=== PATIENT | female | born 1955 | race Caucasian/White ===

== ENCOUNTER → 2017-05-31 | Outpatient (CLI) | payer MEDICARE | END | disposition home or self-care (01) | LOC: HKI 13:19 | DX: Z02.9 Encounter for administrative examinations, unspecified (principal) ==

== ENCOUNTER → 2017-06-23 | Outpatient (CLI) | payer MEDICARE | END | disposition home or self-care (01) | LOC: HKI 10:18 | DX: Z47.1 Aftercare following joint replacement surgery (principal); Z96.641 Presence of right artificial hip joint ==

== ENCOUNTER → 2017-09-22 | Outpatient (CLI) | payer MEDICARE | END | disposition home or self-care (01) | LOC: HKI 09:51 | DX: Z09 Encounter for follow-up examination after completed treatment for conditions other than malignant neoplasm (principal); M76.31 Iliotibial band syndrome, right leg; M70.61 Trochanteric bursitis, right hip; M25.552 Pain in left hip; Z96.653 Presence of artificial knee joint, bilateral | CPT/HCPCS: 73502 ==

== ENCOUNTER → 2017-10-18 | Outpatient (CLI) | payer MEDICARE | END | disposition home or self-care (01) | LOC: HKI 11:36 | DX: M25.552 Pain in left hip (principal); M25.551 Pain in right hip; I10 Essential (primary) hypertension; Z88.0 Allergy status to penicillin; Z96.643 Presence of artificial hip joint, bilateral | CPT/HCPCS: 73523 ==

== ENCOUNTER → 2018-01-10 | Outpatient (CLI) | payer MEDICARE | END | disposition home or self-care (01) | LOC: HKI 11:36 | DX: Z01.818 Encounter for other preprocedural examination (principal) | CPT/HCPCS: G0463 ==

== ENCOUNTER → 2018-01-11 | Outpatient (CLI) | payer MEDICARE | END | disposition home or self-care (01) | LOC: LAB 08:00 | DX: Z01.818 Encounter for other preprocedural examination (principal) | CPT/HCPCS: 87081 ==

== ENCOUNTER 2018-01-20 09:30 | Inpatient (IN) | payer MEDICARE ==
[~2018-01-20 09:30] MED LIST: LACTATED RINGER'S 1,000 ML IV*
[2018-01-20] MEDS: ONDANSETRON 4 MG INJ IV ×3 (12:51→19:00)
[2018-01-20] MEDS: LANSOPRAZOLE 30 MG CAP PO (12:51)
[2018-01-20] MEDS: DEXAMETHASONE 4 MG/ML 1 ML INJ IV (12:52)
[2018-01-20] MEDS ORDERED: DIPHENHYDRAMINE 50 MG INJ IV ×2 (13:00→15:30)
[2018-01-20] MEDS: GABAPENTIN 100 MG CAP PO ×2 (13:00→21:43)
[2018-01-20] MEDS ORDERED: BISACODYL 10 MG SUPP PR (13:00)
[2018-01-20] MEDS ORDERED: SENNA/DOCUSATE NA (8.6MG/50MG) TAB PO (13:00)
[2018-01-20] MEDS ORDERED: NACL 0.9% 3 ML SYG IV (13:00)
[2018-01-20] MEDS ORDERED: NALOXONE (0.4 MG/ML) INJ IV (13:00)
[2018-01-20] MEDS ORDERED: NA PHOSPHATE/BIPHOS 133 ML ENEMA PR (13:00)
[2018-01-20] MEDS ORDERED: BACITRACIN 50000 UNITS INJ (13:38)
[2018-01-20] MEDS ORDERED: POLYMYXIN B 500000 UNIT INJ (13:42)
[2018-01-20] MEDS ORDERED: ROCURONIUM 50 MG INJ (13:52)
[2018-01-20] MEDS ORDERED: ONDANSETRON 4 MG INJ (13:52)
[2018-01-20] MEDS ORDERED: MIDAZOLAM 1 MG/ML 2 ML INJ (13:52)
[2018-01-20] MEDS ORDERED: METOCLOPRAMIDE 10 MG INJ (13:52)
[2018-01-20] MEDS ORDERED: PROPOFOL 20 ML (13:52)
[2018-01-20] MEDS ORDERED: FENTAnyl 50 MCG/ML VIAL (14:07)
[2018-01-20] MEDS ORDERED: HYDROmorphONE 2 MG/ML SYG (14:21)
[2018-01-20] MEDS ORDERED: CLINDAMYCIN 600 MG/D5W (PMX) 50 ML IVPB (14:23)
[2018-01-20] MEDS: TRANEXAMIC ACID 1,000 MG in NS 100 ML INTRA-OP X1 IVPB (14:44)
[2018-01-20] MEDS ORDERED: HYDROmorphONE 1 MG/5 ML IV SYRINGE IV ×2 (15:30)
[2018-01-20] MEDS ORDERED: MEPERIDINE 25 MG INJ IV (15:30)
[2018-01-20] MEDS ORDERED: ONDANSETRON 4 MG INJ IV (15:30)
[2018-01-20] MEDS ORDERED: ROPIVACAINE 0.5 % 30 ML VIAL (16:19)
[2018-01-20] MEDS: DOCUSATE SODIUM 100 MG CAP PO (17:31)
[2018-01-20] MEDS: ASPIRIN (EC) 325 MG TAB PO (17:31)
[2018-01-20] MEDS: HYDROmorphONE 1 MG/5 ML IV SYRINGE IV (17:31)
[2018-01-20] MEDS: HYDROmorphONE 0.2 MG/ML PCA IV (17:33)
[2018-01-20] MEDS ORDERED: GABAPENTIN 100 MG CAP PO (21:00)
[2018-01-20] MEDS: BUPROPION (SR) 150 MG TAB PO (21:00)
[2018-01-20] MEDS: SOD CHLORIDE 0.9% 1,000 ML IV (21:41)
[2018-01-20] MEDS: VANCOMYCIN 1 GM (PMX) 250 ML IVPB (21:43)
[2018-01-20] MEDS: BENAZEPRIL 40 MG TAB PO (21:44)
[2018-01-21] MEDS: ONDANSETRON 4 MG INJ IV ×2 (00:11→06:15)
[2018-01-21] MEDS: SOD CHLORIDE 0.9% 1,000 ML IV (03:22)
[2018-01-21 05:47] LABS: ADD MAN DIFF? NO
[2018-01-21 05:54] LABS: WHITE BLOOD COUNT 15.3 10^3/ul (4.8-10.8)
[2018-01-21 05:54] LABS: BASOPHILS % 0.1 % (0.0-2.0); HEMATOCRIT 36.6 % (37.0-47.0); HEMOGLOBIN 11.5 g/dl (12.0-16.0); LYMPHOCYTES # 1.4 10^3/ul (0.8-2.9); LYMPHOCYTES % 9.2 % (15.0-51.0); MEAN CORPUSCULAR HGB CONC 31.4 g/dl (32.0-37.0); MEAN CORPUSCULAR VOLUME 82.6 fl (82.0-101.0); MEAN PLATELET VOLUME 10.5 fl (7.4-10.4); MONOCYTE # 0.8 10^3/ul (0.3-0.9); MONOCYTES % 5.1 % (0.0-11.0); PLATELET COUNT 260 10^3/UL (140-415); RED BLOOD COUNT 4.43 10^6/ul (4.20-5.40); RED CELL DISTRIBUTION WIDTH 13.7 % (11.5-14.5)
[2018-01-21] MEDS: BETHANECHOL 25 MG TAB PO (06:03)
[2018-01-21] MEDS: PANTOPRAZOLE (EC) 40 MG TAB PO (06:03)
[2018-01-21 06:15] LABS: ANION GAP 13 (8-16); BLOOD UREA NITROGEN 18 mg/dl (7-20); CALCIUM 8.6 mg/dl (8.4-10.2); CARBON DIOXIDE 23 mmol/L (21-31); CHLORIDE 108 mmol/L (97-110); GLUCOSE 164 mg/dl (70-220); POTASSIUM 4.1 mmol/L (3.5-5.1); SODIUM 140 mmol/L (135-144)
[2018-01-21 06:52] LABS: ADD UMIC NO; UR ASCORBIC ACID NEGATIVE (NEGATIVE); UR BILIRUBIN (Dip) NEGATIVE (NEGATIVE); UR BLOOD (Dip) NEGATIVE (NEGATIVE); UR CLARITY CLEAR (CLEAR); UR COLOR STRAW (YELLOW); UR GLUCOSE (Dip) 1+ mg/dL (NEGATIVE); UR KETONES (Dip) TRACE mg/dL (NEGATIVE); UR LEUKOCYTE ESTERASE (Dip) NEGATIVE Leu/ul (NEGATIVE); UR NITRITE (Dip) NEGATIVE (NEGATIVE); UR TOTAL PROTEIN (Dip) NEGATIVE (NEGATIVE); UR UROBILINOGEN (Dip) NEGATIVE (NEGATIVE)
[2018-01-21] MEDS: FERROUS FUMARATE (SR) TAB PO ×2 (09:09→21:46)
[2018-01-21] MEDS: GABAPENTIN 100 MG CAP PO ×3 (09:09→21:46)
[2018-01-21] MEDS: DOCUSATE SODIUM 100 MG CAP PO ×2 (09:09→21:47)
[2018-01-21] MEDS: ASPIRIN (EC) 325 MG TAB PO (09:10)
[2018-01-21] MEDS: BENAZEPRIL 40 MG PO ×2 (09:10→21:52)
[2018-01-21] MEDS: CHOLECALCIFEROL 2,000 UNIT CAP PO (09:10)
[2018-01-21] MEDS: ACYCLOVIR 400 MG TAB PO ×3 (09:10→21:53)
[2018-01-21] MEDS: VANCOMYCIN 1 GM 250 ML IVPB (09:11)
[2018-01-21] MEDS: BUPROPION (SR) 150 MG TAB PO ×2 (09:13→21:47)
[2018-01-21] MEDS: CLINDAMYCIN 600 MG/D5W (PMX) 50 ML IVPB (09:17)
[2018-01-21] MEDS: TRANEXAMIC ACID 1,000 MG in NS 100 ML PRE-OP X1 IVPB (09:18)
[2018-01-21] MEDS: HYDROmorphONE 2 MG/ML SYG IV (15:39)
[2018-01-21] MEDS: HYDROmorphONE 2 MG TAB PO (21:47)
[2018-01-22] MEDS: HYDROmorphONE 2 MG TAB PO ×5 (04:46→23:46)
[2018-01-22] MEDS: PANTOPRAZOLE (EC) 40 MG TAB PO (05:23)
[2018-01-22 05:27] LABS: WHITE BLOOD COUNT 11.8 10^3/ul (4.8-10.8)
[2018-01-22 05:27] LABS: ADD MAN DIFF? NO; BASOPHIL # 0.1 10^3/ul (0.0-0.1); BASOPHILS % 0.4 % (0.0-2.0); EOSINOPHILS # 0.3 10^3/ul (0.0-0.5); EOSINOPHILS % 2.9 % (0.0-7.0); HEMATOCRIT 37.5 % (37.0-47.0); HEMOGLOBIN 11.6 g/dl (12.0-16.0); LYMPHOCYTES % 25.2 % (15.0-51.0); MEAN CORPUSCULAR HEMOGLOBIN 25.8 pg (29.0-33.0); MEAN CORPUSCULAR HGB CONC 30.9 g/dl (32.0-37.0); MEAN CORPUSCULAR VOLUME 83.5 fl (82.0-101.0); MEAN PLATELET VOLUME 10.4 fl (7.4-10.4); MONOCYTES % 8.4 % (0.0-11.0); NEUTROPHIL # 7.4 10^3/ul (1.6-7.5); NEUTROPHILS % 62.7 % (39.0-77.0); PLATELET COUNT 254 10^3/UL (140-415); RED BLOOD COUNT 4.49 10^6/ul (4.20-5.40); RED CELL DISTRIBUTION WIDTH 14.2 % (11.5-14.5)
[2018-01-22 05:38] LABS: ANION GAP 9 (8-16); BLOOD UREA NITROGEN 26 mg/dl (7-20); CALCIUM 8.7 mg/dl (8.4-10.2); CARBON DIOXIDE 29 mmol/L (21-31); CHLORIDE 109 mmol/L (97-110); CREATININE 0.96 mg/dl (0.44-1.00); GLUCOSE 103 mg/dl (70-220); SODIUM 142 mmol/L (135-144)
[2018-01-22] MEDS: ASPIRIN (EC) 325 MG TAB PO (09:06)
[2018-01-22] MEDS: CHOLECALCIFEROL 2,000 UNIT CAP PO (09:06)
[2018-01-22] MEDS: DOCUSATE SODIUM 100 MG CAP PO ×2 (09:06→21:02)
[2018-01-22] MEDS: ACYCLOVIR 400 MG TAB PO ×3 (09:06→21:03)
[2018-01-22] MEDS: GABAPENTIN 100 MG CAP PO ×3 (09:06→21:03)
[2018-01-22] MEDS: FERROUS FUMARATE (SR) TAB PO ×2 (09:06→21:03)
[2018-01-22] MEDS: BUPROPION (SR) 150 MG TAB PO ×2 (09:06→21:03)
[2018-01-22] MEDS: BENAZEPRIL 40 MG PO ×2 (09:07→21:02)
[2018-01-23] MEDS: HYDROmorphONE 2 MG TAB PO ×3 (05:05→14:03)
[2018-01-23] MEDS: PANTOPRAZOLE (EC) 40 MG TAB PO (05:05)
[2018-01-23 06:03] LABS: ADD MAN DIFF? NO
[2018-01-23 06:04] LABS: BASOPHILS % 0.4 % (0.0-2.0); EOSINOPHILS # 0.4 10^3/ul (0.0-0.5); EOSINOPHILS % 4.4 % (0.0-7.0); HEMATOCRIT 36.3 % (37.0-47.0); HEMOGLOBIN 11.4 g/dl (12.0-16.0); LYMPHOCYTES # 2.4 10^3/ul (0.8-2.9); LYMPHOCYTES % 23.8 % (15.0-51.0); MEAN CORPUSCULAR HEMOGLOBIN 26.1 pg (29.0-33.0); MEAN CORPUSCULAR HGB CONC 31.4 g/dl (32.0-37.0); MEAN CORPUSCULAR VOLUME 83.1 fl (82.0-101.0); MEAN PLATELET VOLUME 10.5 fl (7.4-10.4); MONOCYTES % 10.2 % (0.0-11.0); NEUTROPHILS % 60.8 % (39.0-77.0); PLATELET COUNT 248 10^3/UL (140-415); RED BLOOD COUNT 4.37 10^6/ul (4.20-5.40); RED CELL DISTRIBUTION WIDTH 14.3 % (11.5-14.5)
[2018-01-23 06:04] LABS: WHITE BLOOD COUNT 9.9 10^3/ul (4.8-10.8)
[2018-01-23 06:36] LABS: ANION GAP 14 (8-16); BLOOD UREA NITROGEN 21 mg/dl (7-20); CALCIUM 8.5 mg/dl (8.4-10.2); CARBON DIOXIDE 28 mmol/L (21-31); CHLORIDE 103 mmol/L (97-110); CREATININE 0.91 mg/dl (0.44-1.00); GLUCOSE 99 mg/dl (70-220); POTASSIUM 4.5 mmol/L (3.5-5.1); SODIUM 140 mmol/L (135-144)
[2018-01-23] MEDS: DOCUSATE SODIUM 100 MG CAP PO (08:37)
[2018-01-23] MEDS: FERROUS FUMARATE (SR) TAB PO (08:38)
[2018-01-23] MEDS: CHOLECALCIFEROL 2,000 UNIT CAP PO (08:38)
[2018-01-23] MEDS: ACYCLOVIR 400 MG TAB PO ×2 (08:38→12:30)
[2018-01-23] MEDS: BUPROPION (SR) 150 MG TAB PO (08:38)
[2018-01-23] MEDS: ASPIRIN (EC) 325 MG TAB PO (08:38)
[2018-01-23] MEDS: BENAZEPRIL 40 MG PO (08:39)
[2018-01-23] MEDS: GABAPENTIN 300 MG CAP PO ×3 (09:00→12:30)
== END 2018-01-23 16:00 | disposition home or self-care (01) | DRG 468 ==
LOC: REC 09:30 → MS1 19:45
PROC: 0SRB02Z Replacement of Left Hip Joint with Metal on Polyethylene Synthetic Substitute, Open Approach (ICD-10-PCS; principal; 2018-01-20 14:04)
PROC: 0SPB0JZ Removal of Synthetic Substitute from Left Hip Joint, Open Approach (ICD-10-PCS; 2018-01-20 14:04)
DX: T84.091A Other mechanical complication of internal left hip prosthesis, initial encounter (principal); E66.9 Obesity, unspecified; B00.9 Herpesviral infection, unspecified; Z68.31 Body mass index [BMI] 31.0-31.9, adult; Z96.643 Presence of artificial hip joint, bilateral; E55.9 Vitamin D deficiency, unspecified; M21.752 Unequal limb length (acquired), left femur; I10 Essential (primary) hypertension; G89.4 Chronic pain syndrome; Z78.0 Asymptomatic menopausal state; Y84.8 Other medical procedures as the cause of abnormal reaction of the patient, or of later complication, without mention of misadventure at the time of the procedure; Y92.89 Other specified places as the place of occurrence of the external cause; Z79.82 Long term (current) use of aspirin
CPT/HCPCS: 73530; 80048; 81003; 85025; 86850; 86900; 86901; 87070; 87075; 87081; 87086; 87102; 87116; 88300; 88304; 97110; 97116; 97161; 97165; 97530

== ENCOUNTER → 2018-01-31 | Outpatient (CLI) | payer MEDICARE | END | disposition home or self-care (01) | LOC: HKI 11:08 | DX: Z09 Encounter for follow-up examination after completed treatment for conditions other than malignant neoplasm (principal); Z96.642 Presence of left artificial hip joint | CPT/HCPCS: 73502 ==

== ENCOUNTER → 2018-02-28 | Outpatient (CLI) | payer MEDICARE | END | disposition home or self-care (01) | LOC: HKI 11:23 | DX: Z47.1 Aftercare following joint replacement surgery (principal); Z96.642 Presence of left artificial hip joint | CPT/HCPCS: 73502 ==

== ENCOUNTER → 2018-04-25 | Outpatient (CLI) | payer MEDICARE | END | disposition home or self-care (01) | LOC: HKI 10:46 | DX: M25.551 Pain in right hip (principal); Z09 Encounter for follow-up examination after completed treatment for conditions other than malignant neoplasm; Z96.642 Presence of left artificial hip joint | CPT/HCPCS: 73502 ==

== ENCOUNTER → 2018-08-24 | Outpatient (CLI) | payer MEDICARE | END | disposition home or self-care (01) | LOC: HKI 08:20 | DX: Z09 Encounter for follow-up examination after completed treatment for conditions other than malignant neoplasm (principal); Z96.641 Presence of right artificial hip joint; Z96.643 Presence of artificial hip joint, bilateral | CPT/HCPCS: 72170; 73502; 73521 ==